=== PATIENT | female | born 1980 | race African-American/Black ===

== ENCOUNTER 2019-08-09 16:37 | Inpatient (IN) | payer SELFPAY ==
[~2019-08-09] VITALS: Ht 170.2 cm; Wt 74.9 kg
[2019-08-09 17:55] LABS: Basophils # (auto) 0 uL; Basophils % (auto) 0.2 % (0.0-2.0); Eosinophils # (auto) 0 uL; Eosinophils % (auto) 0.6 % (0.0-7.0); Hematocrit 36.6 % (36.0-46.0); Hemoglobin 12.7 g/dL (12.2-16.2); Lymphocytes % (auto) 11.2 % (10.0-50.0); Mean Corpuscular Hemoglobin 30.7 pg (28.0-32.0); Mean Corpuscular Hgb Conc. 34.6 g/dL (32.0-36.0); Mean Corpuscular Volume 88.7 fL (80.0-100.0); Monocytes # (auto) 1.1 uL; Neutrophils # (auto) 6.4 uL; Platelet Count (auto) 334 10^3/uL (140-450); Red Blood Cells 4.13 10^6/uL (4.0-5.20); Red Cell Distribution Width 12.7 % (11.8-14.3); White Blood Cell 8.5 10^3/uL (4.4-10.8)
[2019-08-09] MEDS ORDERED: SODIUM CHLORIDE 0.9% 1,000 ML IVB ONE (18:02)
[2019-08-09 18:13] LABS: Albumin 3.1 g/dL (3.4-5.0); Anion Gap 7 (5-15); Blood Urea Nitrogen 8 mg/dL (7-18); Calcium 8.1 mg/dL (8.5-10.1); Carbon Dioxide 29 mmol/L (21-32); Chloride 102 mmol/L (98-107); Glucose 88 mg/dL (74-106); Sodium 138 mmol/L (136-145)
[2019-08-09] MEDS ORDERED: HYDROmorphone HCL 2 MG/ML VL IV ONE (18:15)
[2019-08-09] MEDS ORDERED: ONDANSETRON HCL 4 MG/2 ML VIAL IV ONE (18:15)
[2019-08-09 18:18] LABS: Alanine Aminotransferase 16 U/L (13-56); Alkaline Phosphatase 70 U/L (45-117); Aspartate Aminotransferase 10 U/L (15-37); BUN/Creatinine Ratio 13.3; Bilirubin, Total 0.6 mg/dL (0.2-1.0); GFR African American 142 mL/min; GFR Non-African American 117 mL/min; Total Protein 7.4 g/dL (6.4-8.2)
[2019-08-09 18:37] LABS: Amylase 26 U/L (25-115); Blood Alcohol < 3.0 mg/dL (0-5); Lipase 43 U/L (73-393)
[2019-08-09] MEDS ORDERED: POTASSIUM CHL 20 Meq TABLET PO ONE (21:45)
[2019-08-09] MEDS ORDERED: ALBUTEROL SULF 2.5 MG/0.5ML(0.5%) NEB SOLN NEB PRN (22:30)
[2019-08-09] MEDS ORDERED: ACETAMINOPHEN 325 MG TAB PO PRN (22:30)
[2019-08-09] MEDS ORDERED: MORPHINE SULFATE 4 MG/ML SYR/VIAL IV PRN (22:30)
[2019-08-09] MEDS ORDERED: TEMAZEPAM 15 MG CAP PO PRN (22:30)
[2019-08-09] MEDS ORDERED: ONDANSETRON HCL 4 MG/2 ML VIAL IV PRN (22:30)
[2019-08-09] MEDS: SODIUM CHLORIDE 0.9% 1,000 ML IV SCH ×2 (22:49→23:52)
--- NOTE | 2019-08-09 23:21 | NUR ---
MS admit from ER SMOOTHC[facility]Y admitted to tele/MS; no SBAR received. Patient oriented by KWAN ALBA, primary RN, unit, room, bed, and unit policies regarding patient care and visiting hours. Patient weighed by bedscale and encouraged to call if she needs something. All questions and concerns addressed, patient verbalized understanding. Bed in low position and locked; Person's position of HOB with HOB rails up. Bed alarm on. Pt instructed to use call light when needs to get OOB as she received morphine in ER and can be unsteady on her feet. Pt VU. here approx 15 minutes and then left. Pt's behavior uncoordiated purposeful movement of her arms and hands with twisting of body and legs as exhibited by people 'coming down' from drugs. Then upon husbands departure, pt immediately quietened and dropped off to sleep
[2019-08-09 23:25] VITALS: BP 115/70
[2019-08-10] VITALS (7 sets, daily range): BP systolic 107–138; BP diastolic 68–89
[2019-08-10] MEDS ORDERED: OXY5T PO (00:20)
[2019-08-10] MEDS ORDERED: ALBU2TAB4 INH (00:20)
[2019-08-10] MEDS: HYDROcodone-ACET 5/325MG TAB PO PRN ×4 (03:40→19:43)
--- NOTE | 2019-08-10 03:46 | NUR ---
Taiban 5/325 i po given for R upper abd pain 04/20. Pt assisted to BR and back to bed. Drops off to sleep easily when quietens.
[2019-08-10 06:01] LABS: Basophils # (auto) 0 uL; Basophils % (auto) 0.3 % (0.0-2.0); Eosinophils # (auto) 0 uL; Eosinophils % (auto) 0.6 % (0.0-7.0); Hemoglobin 11.8 g/dL (12.2-16.2); Lymphocytes # (auto) 0.7 uL; Lymphocytes % (auto) 10.8 % (10.0-50.0); Mean Corpuscular Hemoglobin 30.8 pg (28.0-32.0); Mean Corpuscular Hgb Conc. 34.7 g/dL (32.0-36.0); Mean Corpuscular Volume 88.9 fL (80.0-100.0); Monocytes # (auto) 1.2 uL; Monocytes % (auto) 17.1 % (0.0-12.0); Neutrophils # (auto) 4.9 uL; Neutrophils % (auto) 71.2 % (37.0-80.0); Platelet Count (auto) 296 10^3/uL (140-450); Red Blood Cells 3.82 10^6/uL (4.0-5.20); Red Cell Distribution Width 12.9 % (11.8-14.3); White Blood Cell 6.9 10^3/uL (4.4-10.8)
[2019-08-10 06:25] LABS: Potassium 3.1 mmol/L (3.5-5.1)
--- NOTE | 2019-08-10 07:15 | NUR ---
Opening Shift Note Assumed care of patient, awake, alert, and oriented x4. No S/S of distress/SOB, but patient is reporting right upper abdominal pain of 7/10. IV is in left forearm 20 gauge and is asymptomatic, intact, patent, and infusing normal saline at 80 mL/hour. Patient is NPO except for medications. Bed is locked and in lowest position and call light is within reach. Instructed on POC and to call for assist PRN, and patient verbalized understanding. Will continue to monitor for changes Q1hr and PRN.
--- NOTE | 2019-08-10 08:15 | NUR ---
Received call from radiology, requesting urine test result prior to small bowel series today.
--- NOTE | 2019-08-10 08:26 | NUR ---
Awaiting urine sample from patient to send to lab.
--- NOTE | 2019-08-10 09:00 | NUR ---
Sent urine sample to lab.
[2019-08-10] MEDS: FAMOTIDINE (10MG/ML) 2ML VL IV SCH ×2 (09:05→21:22)
[2019-08-10 09:21] LABS: Urine Bacteria NONE SEEN /hpf (None Seen); Urine Blood Negative /uL (Negative); Urine Mucus FEW (None Seen); Urine Specific Gravity 1.013 (1.001-1.035); Urine WBC 16 /hpf (0 - 5)
[2019-08-10 09:37] LABS: Alcohol, Urine < 3.0 mg/dL (0-5); Amphetamine Screen, Urine POSITIVE (NEGATIVE); Barbiturate Scree,Urine NEGATIVE (NEGATIVE); Benzodiazephine Screen, Urine NEGATIVE (NEGATIVE); Cannabinoid Screen, Urine POSITIVE (NEGATIVE); Cocaine Screen, Urine NEGATIVE (NEGATIVE); Opiate Scree,Urine POSITIVE (NEGATIVE); Phencyclidine Screen, Urine NEGATIVE (NEGATIVE)
--- NOTE | 2019-08-10 09:43 | NUR ---
Respiratory note: PT ASSESSED FOR PRN MED NEB TX, NO TX DESIRED NOR INDICATED AT THIS TIME. NO C/O SOB OR DIFF BREATHING. NO SIGNS OF DISTRESS NOTED. HR 85 RR 18 SPO2 95% ON RA BREATH SOUNDS ARE CLEAR T/O. PT AWAKE/ALERT SITTING IN BED. PT AND RN AWARE TO HAVE RT PAGE DIF NEEDED.
[2019-08-10] MEDS ORDERED: GASTROGRAFIN 120 ML SOL ONE (09:46)
--- NOTE | 2019-08-10 10:06 | NUR ---
Patient taken down to Radiology, via wheelchair; no distress noted at time of departure.
--- NOTE | 2019-08-10 11:55 | NUR ---
Patient returned from Radiology via wheelchair; no distress noted at time of arrival. Patient still to remain NPO until full small bowel series is completed. Will continue to monitor Q1.
--- NOTE | 2019-08-10 12:32 | NUR ---
Received call from Radiology; small bowel series completed.
--- NOTE | 2019-08-10 12:48 | NUR ---
Dr. Webb, Hospitalist, at bedside; new orders received.
[2019-08-10] MEDS: SODIUM CHLORIDE 0.9% 1,000 ML IV SCH ×2 (14:45→21:39)
--- NOTE | 2019-08-10 19:40 | NUR ---
Respiratory note: PT ASSESSED FOR PRN MED NEB TX. HR 92, RR 18, SPO2 100% ON R/A. ADVISED PT TO CALL IF TX IS NEEDED. RT NAME AND PAGER NUMBER WRITTEN ON PT'S BOARD.
--- NOTE | 2019-08-10 20:00 | NUR ---
Opening Shift Note Assumed care of patient, awake and alert. No S/S of distress/SOB or pain. Instructed on POC and to call for assist PRN, will continue to monitor for changes Q1hr and PRN.
[2019-08-11] MEDS: HYDROcodone-ACET 5/325MG TAB PO PRN ×2 (02:33→08:11)
[2019-08-11] MEDS: SODIUM CHLORIDE 0.9% 1,000 ML IV SCH ×2 (04:05→10:00)
[2019-08-11 05:00] VITALS: BP 123/86
--- NOTE | 2019-08-11 07:45 | NUR ---
Morning note Assumed care of patient, awake and alert sitting up in bed. Respiration even and unlabored. No S/S of distress noted. Discussed POC and to call for assistance as needed. Bed in lowest position, breaks locked, side rails up x2, call light with in reach. Will continue to monitor Q1hr and PRN.
--- NOTE | 2019-08-11 08:01 | NUR ---
RT NOTE: WENT TO PTS ROOM TO ASSESS FOR PRN BREATHING TX, PT SITTING UP IN BED EATING BREAKFAST. NO S/S OF SOB. HR 76, RR 16, SPO2 98% ON RA. NO INDICATION FOR TX AT THIS TIME. WILL CONTINUE TO MONITOR PT.
[2019-08-11] MEDS: FAMOTIDINE (10MG/ML) 2ML VL IV SCH (08:11)
[2019-08-11 09:16] VITALS: BP 128/83
--- NOTE | 2019-08-11 10:45 | NUR ---
Doctor Jon silveira. aware of 3.1 potassium.
--- NOTE | 2019-08-11 12:51 | NUR ---
Discharge instructions given as ordered. Encourage to follow up with PMD as instructed. All questions and concerns addressed. Patient verbalized understanding. Medication reconciliation form completed and copy given to patient. No home medications held in Pharmacy and none returned to patient, and no needed vaccines given. Prescription handed to patient. IV removed with catheter intact, pressure dressing applied. Patient is resting in bed waiting for transportation from family.
--- NOTE | 2019-08-11 14:50 | NUR ---
Discharge Patient taken to vehicle via wheelchair with all personal belongings, accompanied by staff and family member. Respirations even and unlabored. No distress noted at time of departure.
== END 2019-08-11 14:50 | disposition home or self-care (01) | DRG 388 ==
LOC: ER 16:37 → EDBD 16:37 → OVERFLOW 16:38 → WEST WING 23:34
PROVIDERS: ADMIT Nurse Practitioner; ATTEND Family Medicine
DX: K56.7 Ileus, unspecified (principal); D57.00 Hb-SS disease with crisis, unspecified; J45.909 Unspecified asthma, uncomplicated; F17.210 Nicotine dependence, cigarettes, uncomplicated; E66.9 Obesity, unspecified; G89.4 Chronic pain syndrome; G47.00 Insomnia, unspecified; F15.10 Other stimulant abuse, uncomplicated; F12.10 Cannabis abuse, uncomplicated; J20.9 Acute bronchitis, unspecified; Z86.73 Personal history of transient ischemic attack (TIA), and cerebral infarction without residual deficits; Z88.6 Allergy status to analgesic agent; Z90.49 Acquired absence of other specified parts of digestive tract; Z83.3 Family history of diabetes mellitus; Z80.9 Family history of malignant neoplasm, unspecified; Z97.5 Presence of (intrauterine) contraceptive device; Z82.49 Family history of ischemic heart disease and other diseases of the circulatory system; Z80.1 Family history of malignant neoplasm of trachea, bronchus and lung; Z71.6 Tobacco abuse counseling; Z71.51 Drug abuse counseling and surveillance of drug abuser; Z79.899 Other long term (current) drug therapy
CPT/HCPCS: 36415; 71045; 74176; 74250; 80048; 80053; 80307; 80320; 81001; 81025; 82150; 83690; 83880; 84484; 85025; 85045; 93005; 94761; 96361; 96374; 96375; G0378; J2405; J3490